=== PATIENT | female | born 1975 | race Two or more races ===

== ENCOUNTER 2018-02-22 12:00 | Day surgery (SDC) | payer OTHER | END 2018-02-22 14:34 | disposition home or self-care (01) | LOC: WOUND 12:00 | DX: Z48.00 Encounter for change or removal of nonsurgical wound dressing (principal); L97.812 Non-pressure chronic ulcer of other part of right lower leg with fat layer exposed; I87.2 Venous insufficiency (chronic) (peripheral); E66.9 Obesity, unspecified; I89.0 Lymphedema, not elsewhere classified | CPT/HCPCS: G0463 ==

== ENCOUNTER 2018-03-02 09:34 | Day surgery (SDC) | payer OTHER | END 2018-03-02 22:49 | disposition home or self-care (01) | LOC: MHTC 09:34 | DX: I87.2 Venous insufficiency (chronic) (peripheral) (principal); L97.819 Non-pressure chronic ulcer of other part of right lower leg with unspecified severity | CPT/HCPCS: 36465; 36475; C1769; C1888; C1894; J1644; J2250; J3010; J7030; J7040 ==

== ENCOUNTER 2018-03-08 11:34 | Day surgery (SDC) | payer OTHER | END 2018-03-08 23:05 | disposition home or self-care (01) | LOC: WOUND 11:34 | DX: Z48.00 Encounter for change or removal of nonsurgical wound dressing (principal); L97.812 Non-pressure chronic ulcer of other part of right lower leg with fat layer exposed; I87.2 Venous insufficiency (chronic) (peripheral) | CPT/HCPCS: G0463 ==

== ENCOUNTER 2018-03-15 12:16 | Day surgery (SDC) | payer OTHER | END 2018-03-15 14:49 | disposition home or self-care (01) | LOC: WOUND 12:16 | DX: Z48.00 Encounter for change or removal of nonsurgical wound dressing (principal); L97.812 Non-pressure chronic ulcer of other part of right lower leg with fat layer exposed; I87.2 Venous insufficiency (chronic) (peripheral); E66.01 Morbid (severe) obesity due to excess calories | CPT/HCPCS: G0463 ==

== ENCOUNTER 2018-03-22 12:01 | Day surgery (SDC) | payer OTHER | END 2018-03-22 22:40 | disposition home or self-care (01) | LOC: WOUND 12:01 | DX: Z48.00 Encounter for change or removal of nonsurgical wound dressing (principal); L97.812 Non-pressure chronic ulcer of other part of right lower leg with fat layer exposed; I87.2 Venous insufficiency (chronic) (peripheral); E66.01 Morbid (severe) obesity due to excess calories | CPT/HCPCS: G0463 ==

== ENCOUNTER 2018-04-05 12:08 | Day surgery (SDC) | payer OTHER | END 2018-04-05 13:02 | disposition home or self-care (01) | LOC: WOUND 12:08 | DX: Z48.00 Encounter for change or removal of nonsurgical wound dressing (principal); L97.812 Non-pressure chronic ulcer of other part of right lower leg with fat layer exposed; I87.2 Venous insufficiency (chronic) (peripheral) | CPT/HCPCS: G0463 ==

== ENCOUNTER 2018-04-19 12:30 | Day surgery (SDC) | payer OTHER | END 2018-04-19 13:52 | disposition home or self-care (01) | LOC: WOUND 12:30 | DX: Z48.00 Encounter for change or removal of nonsurgical wound dressing (principal); L97.812 Non-pressure chronic ulcer of other part of right lower leg with fat layer exposed; I87.2 Venous insufficiency (chronic) (peripheral) | CPT/HCPCS: G0463 ==

== ENCOUNTER 2018-05-03 12:09 | Day surgery (SDC) | payer OTHER | END 2018-05-03 23:13 | disposition home or self-care (01) | LOC: WOUND 12:09 | DX: Z48.00 Encounter for change or removal of nonsurgical wound dressing (principal); L97.812 Non-pressure chronic ulcer of other part of right lower leg with fat layer exposed; I87.2 Venous insufficiency (chronic) (peripheral) | CPT/HCPCS: G0463 ==

== ENCOUNTER 2018-05-10 12:30 | Day surgery (SDC) | payer OTHER | END 2018-05-10 13:53 | disposition home or self-care (01) | LOC: WOUND 12:30 | DX: Z48.00 Encounter for change or removal of nonsurgical wound dressing (principal); L97.812 Non-pressure chronic ulcer of other part of right lower leg with fat layer exposed; I87.2 Venous insufficiency (chronic) (peripheral); E66.9 Obesity, unspecified | CPT/HCPCS: G0463 ==

== ENCOUNTER 2018-05-24 12:11 | Day surgery (SDC) | payer OTHER | END 2018-05-24 13:59 | disposition home or self-care (01) | LOC: WOUND 12:11 | DX: L97.812 Non-pressure chronic ulcer of other part of right lower leg with fat layer exposed (principal); I87.2 Venous insufficiency (chronic) (peripheral); I89.0 Lymphedema, not elsewhere classified; E66.01 Morbid (severe) obesity due to excess calories | CPT/HCPCS: G0463 ==

== ENCOUNTER 2018-05-31 12:20 | Day surgery (SDC) | payer OTHER | END 2018-05-31 13:14 | disposition home or self-care (01) | LOC: WOUND 12:20 | DX: L97.812 Non-pressure chronic ulcer of other part of right lower leg with fat layer exposed (principal); I87.2 Venous insufficiency (chronic) (peripheral); R60.0 Localized edema; E66.01 Morbid (severe) obesity due to excess calories | CPT/HCPCS: G0463 ==